=== PATIENT | female | born 1995 | race Caucasian/White ===

== ENCOUNTER 2019-12-09 18:31 | Emergency (ER) | payer OTHER ==
[~2019-12-09] VITALS: Ht 157.5 cm; Wt 90.7 kg
[2019-12-09] MEDS ORDERED: ADVAIR HFA 115/12 GM (18:45)
== END 2019-12-09 21:21 | disposition home or self-care (01) ==
LOC: ER 18:31
DX: M62.830 Muscle spasm of back (principal); M51.26 Other intervertebral disc displacement, lumbar region